=== PATIENT | female | born 1980 | race Asian ===

== ENCOUNTER → 2020-01-23 06:46 | Outpatient (CLI) | payer OTHER, SELFPAY ==
--- NOTE | 2020-01-23 | DI.ECHO.S_ITS ---
[facility]---------+ [facility] +---------+ : : [address] : [address] : : : : [id number] : : : : Phone: [phone]+ Echocardiogram Report + + :Name: RADHA THOMAS Study Date: 01/23/2020 Height: 61 in : :[facility] Weight: 111 lb : : Gender: Female BSA: 1.5 m2 : :: 1980 Age: 39 yrs BP: 137/98 mmHg: :Reason For Study: KAWASAKI SYNDROME : :Ordering Physician: CARLENE, : :ZACH Performed By: Deepika Arenas : :Referring: ZACH CONCEPCION : + + Interpretation Summary The left ventricle is normal in size and wall thickness. The ejection fraction is estimated to be 60-65%. The right ventricle is normal in size and function. No significant valvular pathology seen. Procedure: A two-dimensional transthoracic echocardiogram with color flow and Doppler was performed. The study quality was technically adequate. There is no prior echocardiogram noted for this patient. The patient was in sinus rhythm with heart rates between 78-89 bpm during the exam. Left Ventricle: The left ventricle is normal in size and wall thickness. There is no thrombus. The ejection fraction is estimated to be 60-65%. There are no focal wall motion abnormalities. Diastolic parameters suggest probable normal left ventricular diastolic function and normal filling pressures. Right Ventricle: The right ventricle is normal in size and function. Atria: The left atrial size is normal. Right atrial size is normal. There is no Doppler evidence for an interatrial shunt. Mitral Valve: The mitral valve is normal in structure and function. There is trace mitral regurgitation. Aortic Valve: The aortic valve is trileaflet. The aortic valve opens well. There is no aortic valve stenosis. No aortic regurgitation is present. Tricuspid Valve: The tricuspid valve is normal. There is mild tricuspid regurgitation. The right ventricular systolic pressure is estimated to be at least 27 mmHg based on an estimated right atrial pressure of 3 mm Hg. Pulmonic Valve: The pulmonic valve leaflets are thin and pliable; valve motion is normal. There is trace pulmonic regurgitation. Great Vessels: The aortic root is normal size. The dimensions of the ascending aorta are normal. The IVC is of normal diameter and collapses greater than 50% with a sniff. This suggests a low right atrial pressure of 3 mm Hg. Pericardium/ Pleura There is no pericardial effusion. There is no pleural effusion. MMode/2D Measurements & Calculations LVIDd: 5.0 cm LVOT diam: 1.9 cm LVIDs: 3.1 cm Ao root diam: 2.8 cm FS: 37.4 % asc Aorta Diam: 2.7 cm EPSS: 0.50 cm Ao Arch Diam (Prox Trans): 3.1 cm IVSd: 0.63 cm LVPWd: 0.59 cm LV webb. diameter/BSA (cm/m^2): 3.4 LV sys. diameter/BSA (cm/m^2): 2.1 LA A2 area: 15.6 cm2 RA long axis: 4.2 cm LA A4 area: 17.9 cm2 RA area: 12.8 cm2 LA length (vol): 4.9 cm RA vol: 33.4 ml LA vol: 48.5 ml RA : 22.7 ml/m2 LA vol index: 33.0 ml/m2 IVC diam: 1.0 cm RVD1 (basal): 3.7 cm TAPSE: 2.7 cm Doppler Measurements & Calculations Ao V2 max: 174.9 cm/sec LVOT Max Kelton: 118.3 cm/sec Ao V2 mean: 116.2 cm/sec LV V1 max P.6 mmHg Ao max P.2 mmHg LV V1 VTI: 26.4 cm Ao mean P.4 mmHg AVELINO(I,D): 2.0 cm2 Ao V2 VTI: 36.7 cm AVELINO(V,D): 1.8 cm2 sev ratio: 0.72 AVELINO indexed to BSA (cm^2/m^2): 1.3 MV E max kelton: 88.9 cm/sec TR max kelton: 243.7 cm/sec MV A max kelton: 65.6 cm/sec TR max P.8 mmHg MV E/A: 1.4 PA V2 max: 86.4 cm/sec Med Peak E' Kelton: 9.5 cm/sec PA V2 mean: 66.7 cm/sec E/E' med: 9.4 PA mean P.9 mmHg Lat Peak E' Kelton: 16.2 cm/sec PA pr(Accel): 24.2 mmHg E/E' lat: 5.5 E/e' average: 7.4 MV dec time: 0.21 sec SV(LVOT): 71.9 ml Reading Physician:06:13 PM
== END ==
PROVIDERS: Referring Provider Obstetrics & Gynecology; Visit Provider Obstetrics & Gynecology
DX: O99.891 Other specified diseases and conditions complicating pregnancy (principal); M30.3 Mucocutaneous lymph node syndrome [Kawasaki]; O99.412 Diseases of the circulatory system complicating pregnancy, second trimester; I07.1 Rheumatic tricuspid insufficiency; O16.2 Unspecified maternal hypertension, second trimester; Z3A.17 17 weeks gestation of pregnancy
CPT/HCPCS: 93306